=== PATIENT | female | born 1925 | race Caucasian/White ===

== ENCOUNTER 2016-11-06 15:49 | Inpatient (IN) ==
[2016-11-08] MEDS ORDERED: FLEET PHOSPHO - SODA ENEMA 133ml PR PRN (05:00)
[2016-11-08] MEDS ORDERED: NS FLUSH BAG 500ml IV PRN (05:00)
[2016-11-08] MEDS ORDERED: SALINE FLUSH 10ml SYRINGE IVF PRN (05:00)
[2016-11-08] MEDS: LEVOTHYROXINE 50 MCG TABLET PO SCH (07:31)
[2016-11-08] MEDS: HYDROXYCHLOROQUINE 200 MG TABLET PO SCH (08:22)
[2016-11-08] MEDS ORDERED: PANTOPRAZOLE 40 MG INJECTION IV SCH (09:00)
[2016-11-08] MEDS: NS 1,000 ML IV SCH ×2 (09:05→21:38)
--- NOTE | 2016-11-08 13:09 | Anesthesia Preoperative Report ---
Anesthesia Preoperative Record - Date and Time NPO since: mn Allergies/Adverse Reactions: Allergies Allergy/AdvReac Type Severity Reaction Status Date / Time Sulfa (Sulfonamide Allergy Unknown Verified 11/07/16 14:17 Antibiotics) - Vital Signs Vital Signs: Temp Pulse Resp BP Pulse Ox 99.3 F 98 20 139/61 96 11/08/16 12:00 11/08/16 12:00 11/08/16 12:00 11/08/16 12:00 11/08/16 12:00 - Medications Inpatient Medications: Current Medications Hydroxychloroquine Sulfate (Plaquenil) 200 mg PO WB [facility] Last Admin: 11/08/16 08:22 Dose: Not Given Sodium Chloride (Normal Saline) 1,000 mls @ 75 mls/hr IV .[id number] [facility] Last Infusion: 11/08/16 11:52 Dose: 75 mls/hr Levothyroxine Sodium (Synthroid) 50 mcg PO ACB [facility] Last Admin: 11/08/16 07:31 Dose: 50 mcg Pantoprazole Sodium (Protonix Iv) 40 mg IVP DAILY [facility] Sodium Chloride (Iv Flush) 10 - 80 ml IVF PRN PRN PRN Reason: Flushing Sodium Phosphate (Fleet Enema) 1 enema [place] PRN PRN Home Medications: Home Medications Medication Instructions Recorded Confirmed Type Aspirin [Aspirin EC] 81 mg PO 3XW #0 tab 11/06/16 History Clobetasol Propionate/Emoll 1 applic TOP PRN #0 11/06/16 History [Clobetasol Emollient 0.05% Crm] Hydroxychloroquine [Plaquenil] 200 mg PO WB #0 11/06/16 History Levothyroxine Sodium 50 mcg PO ACB #0 tab 11/06/16 History Triamcinolone Acetonide 1 applic TOP PRN #0 11/06/16 History Aspirin *EC* 81 mg PO 3XW 11/07/16 11/07/16 History Clobetasol Propionate/Emoll 1 applic TOP PRN 11/07/16 11/07/16 History Hydroxychloroquine Sulfate 200 mg PO WB 11/07/16 11/07/16 History Levothyroxine Tab 50 mcg PO ACB 11/07/16 11/07/16 History Triamcinolone 1 applic TOP PRN 11/07/16 11/07/16 History - Medical History Cardiovascular: Reports: Hypertension Renal/Endocrine: Reports: Thyroid Disease - Social History Smoking Status: Never smoker Hx Chewing Tobacco Use: No Substance Use Type: does not use Alcohol Intake Frequency: does not drink - Pertinent Findings Laboratory: CBC and BMP 11/08/16 11:54 11/08/16 05:47 BMP 11/07/16 11/08/16 04:27 05:47 Sodium 135 144 Potassium 5.1 H 3.8 Chloride 108 H D 113 H Carbon Dioxide 23 23 BUN 20.0 H 10.0 Creatinine 0.7 0.7 Glucose 111 H 92 Calcium 7.9 L D 8.0 L Cardiac Enzymes 11/06/16 11/07/16 11/07/16 Range/Units 20:04 00:12 04:27 Troponin I < 0.012 < 0.012 < 0.012 (0-0.12) ng/ml Liver Function 11/07/16 11/08/16 Range/Units 04:27 05:47 Total Bilirubin 1.10 0.40 (0.20-1.30) MG/DL AST 17 18 (14-36) U/L ALT 30 36 (9-52) U/L Alkaline Phosphatase 52 D 52 (38-126) U/L Albumin 2.3 L 2.5 L (3.5-5.0) G/DL Urine 11/07/16 Range/Units 21:01 Urine Color Yellow (YELLOW) Urine pH 6.0 (5.0-8.0) Ur Specific [place] 1.010 L (1.015-1.025) Urine Protein Negative (NEGATIVE) Urine Glucose (UA) Negative (NEGATIVE) - Airway Assessment Mallampati Score: II TMD: 3 Fingerbreadths Neck Extension: fair Overall Assessment: no airway concerns - ASA ASA Score: 3 - Plan Anesthesia: General TIVA - Discussion Discussion: Discussed risks/options/alternatives of anesthesia and questions answered. Patient consents. Nursing pain assessment noted. Attestation Statement: Prior to the delivery of any anesthetic medication, I examined the patient, developed the plan, obtained the patient's consent and discussed the risk and benefits of the procedure with the patient/guardian.
--- NOTE | 2016-11-08 13:12 | Progress Note ---
Subjective: patient doing very well today. has still been having maroon stools with bowel prep but nothing unexpected. no headaches, stroke symptoms, focal neurologic deficits, fevers, chills, body aches, focal neurologic deficits, syncope, dizziness, orthostatic symptoms, weakness, fatigue. no ear pain, sinus pain, sore throat. no chest pain, SOA, cough, sputum production, hemoptysis. no heart failure symptoms, edema, ab pain, GERD symptoms, hematemesis, coffee ground emesis, melena, no new or changing diarrhea. no constipation. no issues with monterroso catheter. draining good amounts of clear to frandy colored urine. no dysuria, gross hematuria, flank pain. she doesn't feel systemically unwell and notes "other than my bleeding I feel like my usual self". no events called on telemetry overnight. nursing with no other concerns at this time. no new issues otherwise at this time. Objective Vital signs: Temp Pulse Resp BP Pulse Ox 99.3 F 98 20 139/61 96 11/08/16 12:00 11/08/16 12:11/08/16 12:00 11/08/16 12:11/08/16 12:00 Rhythm: Normal Sinus Rhythm Weight: 51 kg - Constitutional Present: no acute distress, cooperative - Routine HEENT Exam Comments: clinically well hydrated at this time. mucous membranes moist. no clinical evidence of fluid overload at this time. - Routine Respiratory Exam Present: CTA bilaterally. Absent: accessory muscle use, decreased breath sounds , rales, respiratory distress, rhonchi, stridor, wheezes, crackles, distant breath sounds, diminished air movement Comments: no changes from previous. - Routine Cardiovascular Exam Comments: stable from previous. no changes. no LE edema bilaterally at this time. compartments soft and legs symmetrical b/l in LE's at this time. - Routine Abdominal Exam Present: soft, normoactive bowel sounds, non tender. Absent: tenderness, distended, rebound, guarding, rigid, organomegaly Comments: to all 4 quadrants X4. - Routine Exam Comments: no tenderness over bladder area. monterroso in place and looks good. draining copious amounts of clear to frandy colored urine. - Routine Extremities Exam Comments: see the above. - Routine Musculoskeletal Exam Musculoskeletal: moving extremities well - Routine Skin Exam Comments: no new lesions or rashes to uncovered areas. - Routine Neurological Exam Present: alert, oriented X3 stable form previous. no changes from previous baseline. no focal deficits at this time. - Routine Lymphatic Exam Comments: no lymphedema. - Routine Psychiatric Exam Present: normal affect, normal thought process, cooperative, good insight. Absent: auditory hallucinations, visual hallucinations, agitated Results - Labs CBC & Chem 7: 11/08/16 11:54 11/08/16 05:47 Labs: Short CBC 11/06/16 11/07/16 11/07/16 Range/Units 20:04 04:27 07:58 WBC 8.0 (4.5-11.0) T/MM3 Hgb 8.7 L D 10.7 L D 10.9 L (12-16) GM/DL Hct 27.1 L D 31.4 L D 32.0 L (36-46) % Plt Count 179 D (130-400) T/MM3 11/07/16 11/07/16 11/07/16 Range/Units 12:10 17:42 19:18 WBC (4.5-11.0) T/MM3 Hgb 10.1 L 10.8 L 10.3 L (12-16) GM/DL Hct 30.0 L 32.7 L 31.0 L (36-46) % Plt Count (130-400) T/MM3 11/08/16 11/08/16 11/08/16 Range/Units 00:10 05:47 07:56 WBC 6.5 (4.5-11.0) T/MM3 Hgb 9.6 L 9.2 L 10.0 L (12-16) GM/DL Hct 28.4 L 26.5 L 29.7 L D (36-46) % Plt Count 189 (130-400) T/MM3 11/08/16 Range/Units 11:54 WBC (4.5-11.0) T/MM3 Hgb 9.4 L (12-16) GM/DL Hct 27.3 L (36-46) % Plt Count (130-400) T/MM3 BMP 11/07/16 11/08/16 04:27 05:47 Sodium 135 144 Potassium 5.1 H 3.8 Chloride 108 H D 113 H Carbon Dioxide 23 23 BUN 20.0 H 10.0 Creatinine 0.7 0.7 Glucose 111 H 92 Calcium 7.9 L D 8.0 L Cardiac Enzymes 11/06/16 11/07/16 11/07/16 Range/Units 20:04 00:12 04:27 Troponin I < 0.012 < 0.012 < 0.012 (0-0.12) ng/ml Liver Function 11/07/16 11/08/16 Range/Units 04:27 05:47 Total Bilirubin 1.10 0.40 (0.20-1.30) MG/DL AST 17 18 (14-36) U/L ALT 30 36 (9-52) U/L Alkaline Phosphatase 52 D 52 (38-126) U/L Albumin 2.3 L 2.5 L (3.5-5.0) G/DL Urine 11/07/16 Range/Units 21:01 Urine Color Yellow (YELLOW) Urine pH 6.0 (5.0-8.0) Ur Specific [place] 1.010 L (1.015-1.025) Urine Protein Negative (NEGATIVE) Urine Glucose (UA) Negative (NEGATIVE) Assessment and Plan Assessment and Plan: acute lower gastrointestinal bleeding, blood loss anemia acute hypotension, syncope secondary to combination of GI bleed and vasovagal syncope hypothyroid -continue inpatient and ICU, routine vitals with call parameters, monterroso catheter, I's and O's, daily weights, up with assist, NPO for now. likely discontinue urinary catheter and perform voiding trial after colonoscopy today. possibly out of ICU later today. -cbc's this AM with hgb gradually trending down to mid-9's and H & H's support this as well. cmp essentially normal today. UA with some bacteria and blood but given monterroso catheter this is not unexpected. no urinary symptoms and no indication for abx. will d/c catheter after procedure today. see previous notes and records for other testing and results from this stay. -H & H later this evening and cbc, cmp in the AM. -continue normal saline at 75ml/hr. continue protonix at 40mg IV daily ( was decreased from BID yesterday). continue home synthroid. patient tolerated bowel prep well. -Dr. Cross, surgery consulted and will do colonoscopy today. -further management pending the above. lupus -continue home plaquanil unless surgery wishes to hold for procedure. all other chronic medical conditions stable and no other changes to plan of care at this time. ppx -continue current SCD's. pharmacologic DVT prophylaxis contraindicated secondary to acute GI bleed. -continue ppi above for GI ppx. -DNR/DNI -dispo colonoscopy today and hopefully home tomorrow. Sepsis Assessment - Evaluation Sepsis screening result: No Definite Risk - Focused Exam Vital Signs Temp Pulse Resp BP Pulse Ox 11/08/16 12:00 99.3 F 98 20 139/61 96 11/08/16 08:05 98.7 F 102 H 24 98 11/08/16 08:01 111/58 11/08/16 08:00 102 H 24 98 11/08/16 07:45 108 H 20 11/08/16 07:30 99 26 H 95 11/08/16 07:15 97 16 95 11/08/16 07:01 115/54 11/08/16 06:00 100 16 129/54 11/08/16 05:06 109 H 50 H 145/63 H 97 11/08/16 04:04 92 15 114/54 96 11/08/16 03:02 94 22 102/49 97 11/08/16 02:00 89 41 H 106/53 97 11/08/16 01:29 90 60 H 101/45 95 Hospital Course Summary Disclaimer: The visit summary below is not to be considered part of the above Progress Note.
[2016-11-08] MEDS ORDERED: PROPOFOL 500 MG/50 ML VIAL IV ONE (13:19)
--- NOTE | 2016-11-08 14:40 | General Surgery Procedure Note ---
Date of Procedure: 11/08/16 Surgeon: Tay Anesthesia: General TIVA Postoperative Diagnosis: cecal mass Procedure: Operation Date: 11/08/16 14:20 Actual Procedures Colonoscopy with possible biopsies and/or polypectomy(Not Applicable) - Cristian Cross MD Estimated Blood Loss: See Anesthesia Record.
--- NOTE | 2016-11-08 16:28 | Anesthesia Postoperative Note ---
- Date and Time Date: 11/08/16 Time: 16:20 - Status Patient Participated in Evaluation: Patient Participated in Person Vital Signs: Temp Pulse Resp BP Pulse Ox 99 F 91 15 141/62 H 97 11/08/16 15:00 11/08/16 14:55 11/08/16 14:55 11/08/16 14:55 11/08/16 14:55 Respiratory Function: Airway Patent, Regular Respirations Cardiovascular Function: Regular Pulse Mental Status: Alert and Oriented Hydration: Taking PO Fluids Complications During Recover: None Apparent - Follow-Up Instructions Instructions: Per Surgeon
[2016-11-08] MEDS ORDERED: NS 100 ML ONE (18:43)
[2016-11-08] MEDS ORDERED: IOHEXOL 300mg/ml 75ml INJECTION ONE (18:43)
[2016-11-08] MEDS ORDERED: SALINE FLUSH 10ml SYRINGE ONE (18:43)
[2016-11-09] MEDS: NS 1,000 ML IV SCH (01:50)
[2016-11-09] MEDS: LEVOTHYROXINE 50 MCG TABLET PO SCH (06:01)
--- NOTE | 2016-11-09 07:21 | Progress Note ---
DATE 11/08/2016 FINDINGS Yesenia, this evening, was in good spirits. She denied any abdominal pain. VITALS: Temperature 98.5, pulse 94, respirations 20, blood pressure 130/61. CHEST: Clear to auscultation bilaterally. HEART: Regular rate and rhythm. Normal S1 and S2 without gallops, murmurs or clicks. ABDOMEN: Palpation of the abdomen revealed it to be soft and nontender. LABORATORY/ENDOSCOPIC RESULTS The patient's last hemoglobin was stable at 9.4 earlier today. Endoscopically, unfortunately, the patient was found have a suspicious mass involving the ileocecal valve region. This area was biopsied. I did share her endoscopic results with her this evening. PLAN Will go ahead and advance diet as tolerated. Will plan on transferring to floor tomorrow. Will DC serial hemoglobins. Repeat CBC in a.m. Will proceed with CT scan of abdomen and pelvis with oral and IV contrast for further evaluation of the suspicious mass involving the ileocecal valve region. If the patient is stable tomorrow without evidence for re-bleeding and hemoglobin remains stable, she may be discharged to home and further evaluation will be undertaken on an outpatient basis in regards to this suspicious mass that was biopsied today upon colonoscopy. The above-proposed plan was discussed with the patient. The patient understood and agreed. GIOVANNY
[2016-11-09] MEDS: HYDROXYCHLOROQUINE 200 MG TABLET PO SCH (08:42)
[2016-11-09] MEDS ORDERED: PANTOPRAZOLE 40 MG INJECTION IVP SCH (09:00)
--- NOTE | 2016-11-09 09:10 | Operative Note ---
DATE OF SERVICE 11/08/2016 SURGEON Cristian Cross MD PREOPERATIVE DIAGNOSIS History for hematochezia. POSTOPERATIVE DIAGNOSIS Ileocecal mass, sigmoid diverticulosis. PROCEDURE Colonoscopy with biopsies of ileocecal mass via with via cold biopsy technique. ANESTHESIA TIVA BRIEF HISTORY/INDICATIONS Mrs. Bernal is an 89-year-old female who presented to [facility] as a result of her history for significant rectal bleeding. The patient did undergo initially an EGD that did not reveal any underlying etiology for her rectal bleeding. It was subsequently recommended to the patient she undergo a colonoscopy for further evaluation. For completeness please refer notes included within the patient's electronic medical record. FINDINGS Upon colonoscopy the patient was found have numerous diverticula within the sigmoid colon region. There was some old blood present near these diverticula suggestive of a recent diverticular bleed. There was no evidence for angiodysplastic lesions or polyps. The patient, unfortunately, was found to have a mass-like lesion involving the ileocecal valve. This did appear suspicious for an underlying neoplastic process. Photos were obtained for documentation purposes. The ileocecal valve did protrude outwardly into the cecum to a fairly good extent. Just behind the ileocecal valve and extending into what appeared to be the terminal ileum, the patient was found to have a suspicious appearing lesion. There was a white exudate-like material overlying this lesion. Multiple biopsies were obtained from this area via cold biopsy technique. DESCRIPTION OF PROCEDURE After informed consent was obtained, the patient was brought to the endoscopy suite and placed on the table in left lateral decubitus position. The patient subsequently underwent total intravenous anesthesia by the nurse jawbone puller per my request. Formal time-out was then completed. Next, a digital rectal examination was performed. Normal sphincter tone. No rectal mass was appreciated. An Olympus colonoscope was inserted in the anus and advanced with the lumen of the colon under direct visualization at all times till the cecum was ascertained. As stated above, the ileocecal valve was protruding outwardly into the cecal lumen. Photos were again taken for documentation purposes. Scope was then advanced past this ileocecal valve and one could see a suspicious -appearing mass that extended in towards the terminal ileum. There was a white exudate-like material overlying the mass. The mass did appear to be narrowing the lumen of the terminal ileum. Multiple biopsies were obtained from the suspicious mass involving the ileocecal valve region. This was done via cold biopsy technique. Scope was then slowly withdrawn, again maintaining visualization of the lumen at all times. I did not appreciate any evidence for angiodysplastic lesions nor polyps. The patient was found to have a fair amount of diverticula within the sigmoid colon region. There was some old blood overlying a few of these diverticula indicative of recent bleeding. No active bleeding was noted. The scope was then continued to be withdrawn till it was brought forth back to rectal vault. A J-maneuver was performed. No worrisome perianal pathology was noted. The scope was allowed to straighten and withdrawn through the anal verge. The patient tolerated the procedure without difficulty and was sent back to the preop area in stable condition. Will await the biopsy results from today's colonoscopy and proceed accordingly with further recommendations thereafter. GIOVANNY
--- NOTE | 2016-11-09 09:28 | CT Scan Report ---
Indication: cecal mass found on endoscopy PROCEDURE: CT abdomen pelvis w con: Encounter: Initial Comparison: None Technique: Axial CT images were performed through the abdomen and pelvis after the administration of intravenous contrast. Coronal and sagittal two-dimensional reformats. Automated Exposure Control and Iterative Reconstruction dose reducing techniques were utilized. Contrast: Omnipaque 300 67 mL Findings: There are couple calcified granulomas in the lower lobes. There is also a noncalcified 1.1 cm nodule in the right middle lobe. There are some areas of bronchiectasis and subpleural scarring in both lower lobes. Pectus excavatum deformity. The liver shows two rounded low-attenuation lesions in the right lobe on axial image #25 measuring 1.7 cm in diameter each. These do not show fluid attenuation. Additionally there is an irregular nodule along the surface of the lateral left lobe on this image measuring 2.1 cm in diameter. Smaller lesion more medially in the left lobe on image #24 measuring 0.9 cm in size with similar attenuation. Moderate intrahepatic bile duct dilatation, probably related to age and prior cholecystectomy. Extrahepatic common duct is dilated up to 1.4 cm without obvious obstructing stone or mass. The spleen, pancreas and left adrenal gland are within normal limits. Possible adenomatous hyperplasia of the right adrenal gland. The kidneys are normal. No abdominal or pelvic lymphadenopathy. Bladder is decompressed with a fully catheter. The uterus is unremarkable. No free fluid. There is significant abnormal bowel wall thickening seen centered around the ileocecal valve and terminal ileum. The terminal ileum wall is thickened up to 1.5 cm in diameter with some luminal narrowing but no obstruction. There is abnormal soft tissue or mass surrounding the ileocecal valve measuring up to 2.7 cm in diameter on coronal image #17. There is some soft tissue or fluid along the right lateral conal fascia seen on axial image #45 measuring 2.9 x 1.3 cm in size. Bone windows show degenerative change in the spine. Impression: 1. 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 2. Multiple liver lesions highly concerning for metastases. 3. Right middle lobe nodule could represent metastasis or granuloma. There are other calcified granulomas present within the lung bases. Case was discussed with Dr. Cross at 0915 on November 09, 2016. .
--- NOTE | 2016-11-09 11:33 | Progress Note ---
DATE 11/09/2016 FINDINGS Yesenia was in good spirits this morning. She had eaten a regular breakfast. She has had no further rectal bleeding. VITALS: Temperature 98.7, pulse 104, respirations 24, blood pressure 125/55, SaO2 93% on room air. HEENT: Normocephalic. Pupils are equal, round and reactive to light and accommodation. CHEST: Clear to auscultation bilaterally. HEART: Regular rate and rhythm. Normal S1 and S2 without gallops, murmurs or clicks. ABDOMEN: Palpation of the abdomen reveals it to be soft and nontender. I do not appreciate any evidence for hepatosplenomegaly or abnormal masses. LABORATORY/RADIOGRAPH EVALUATION I did review her CT scan and, unfortunately, the patient does have three separate lesions within the liver that are suspicious for metastatic disease. One can see some thickening involving the terminal ileum and cecal region. There does not appear to be any obstruction at this time. A dictated report is still pending at time of dictation but I have spoken with the radiologist in regard to the above CT scan findings. From a laboratory standpoint, her hemoglobin remains stable at 9.8. 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 PLAN I did inform Yesenia of her endoscopic findings as well as her CT scan findings. Discussed with Yesenia her options of proceeding with further evaluation including a CT-guided percutaneous biopsy of the liver lesions and possible palliative chemotherapy versus comfort care/hospice care. The patient was fairly quick to state that she did not want any further intervention undertaken. She had requested that I contact her son, Obed Goodman. I did speak with the patient's son in regard to the above findings. At this time will go ahead and transfer the patient out to the floor. I do believe the patient could be discharged to home later this afternoon. I have spoken with the patient's PCP in regard to the above matters as well. GIOVANNY
--- NOTE | 2016-11-09 13:49 | Progress Note ---
Subjective: patient doing well medically. she is concerned and was caught off-guard about the noted mass in her colon and areas on her liver of possible metastesis. otherwise has no complaints. no headaches, stroke symptoms, URI symptoms, syncope, dizziness. appetite is good. no fevers, chills, body aches. no altered mentation or delerium symptoms. no chest pain, SOA, orthopnea, PND, heart failure symptoms, cough, sputum production. has been urinating ok since monterroso taken out. no hemoptysis. no orthostatic symptoms. no focus of infection of which she can waste picker on. no photophobia or meningeal symptoms. no abdominal pain, nausea, vomiting, diarrhea, constipation. no bloody/black stools. no GI bleeding since our last visit together. no hematemesis, GERD symptoms, coffee ground emesis, dysuria, hematuria, urinray frequency, flank pain, nocturia, skin/soft tissue issues. denies homicidal/suicidal ideations. no events called on telemetry overnight. no new issues otherwise at this time. Objective Vital signs: Temp Pulse Resp BP Pulse Ox 99.0 F 103 H 16 142/60 H 96 11/09/16 10:48 11/09/16 10:48 11/09/16 10:48 11/09/16 10:48 11/09/16 10:48 Rhythm: Normal Sinus Rhythm Weight: 50.3 kg - Constitutional Present: no acute distress, well nourished, well developed, cooperative. Absent : agitated, somnolent, obtunded - Routine HEENT Exam Head: Present: normocephalic, atraumatic Comments: clinically well perfused and mucous membranes moist at this time. no clinical evidence of fluid overload at this time. - Routine Respiratory Exam Present: CTA bilaterally. Absent: accessory muscle use, decreased breath sounds , rales, respiratory distress, rhonchi, stridor, wheezes, crackles, distant breath sounds, diminished air movement Comments: no retractions or accessory muscle use. moving air well. lung sounds heard in all lung adrian b/l at this time. - Routine Cardiovascular Exam Comments: stable from previous. no changes. - Routine Abdominal Exam Present: soft (X4.), normoactive bowel sounds (X4.), non distended, non tender. Absent: tenderness (X4.), distended, rebound, guarding, firm, rigid, organomegaly, mass, bruit Comments: no evidence of acute abdomen at this time. - Routine Exam Comments: no tenderness over bladder area. - Routine Extremities Exam Absent: clubbing, edema, joint swelling, pallor Comments: clinically well perfused in all 4 extremities at this time. legs symmetrical and compartments soft b/l in LE's at this time. - Routine Musculoskeletal Exam Musculoskeletal: no clubbing or cyanosis, normal strength, no joint swelling, moving extremities well - Routine Skin Exam Present: intact Comments: no new rashes or skin changes to uncovered areas. - Routine Neurological Exam no focal deficits grossly. no changes from yesterday's baseline. - Routine Lymphatic Exam Comments: no lymphedema. - Routine Psychiatric Exam Present: normal affect (but becomes tearful when talking about her diagnosis. ) Comments: no clinical evidence of delerium, jef, psychosis, altered mentation or alertness. Results - Labs CBC & Chem 7: 11/09/16 05:08 11/09/16 05:08 Labs: Short CBC 11/08/16 11/09/16 Range/Units 21:40 05:08 WBC 12.0 H D (4.5-11.0) T/MM3 Hgb 9.2 L 9.8 L (12-16) GM/DL Hct 27.7 L 29.7 L (36-46) % Plt Count 217 (130-400) T/MM3 BMP 11/09/16 05:08 Sodium 140 Potassium 3.8 Chloride 108 H Carbon Dioxide 25 BUN 6.0 L Creatinine 0.8 Glucose 102 Calcium 8.5 Liver Function 11/09/16 Range/Units 05:08 Total Bilirubin 0.50 (0.20-1.30) MG/DL AST 23 (14-36) U/L ALT 33 (9-52) U/L Alkaline Phosphatase 68 D (38-126) U/L Albumin 3.0 L (3.5-5.0) G/DL Assessment and Plan Assessment and Plan: acute lower gastrointestinal bleeding, blood loss anemia from acute diverticular bleeding, resolved. new onset leukocytosis of uncertain etiology colon mass of uncertain etology at the iliocecal junction with areas in liver concerning for metastatic process acute hypotension, syncope secondary to combination of GI bleed and vasovagal syncope, resolved. hypothyroid -continue inpatient care. patient out of ICU. monterroso catheter removed and patient urinating ok and post-void residual reportedly ok at bedside. continue routine vitals with call parameters, I's and O's, daily weights, up with assist, current PO diet. will ambulate TID with assist. -CBC today with new leukocytosis, hgb's in the mid-9's and stable and otherwise unremarkable. no focal of infection or obvious cause in history or on physical exam to explain this. cmp essentially normal. colonoscopy showing likely diverticular bleed as cause but incidentally notes colon mass as noted above. subsequent CT ab/pelvis notable for the liver lesions concerning for metasteses and otherwise unremarkable. patient consulted at length about options and she wishes to think about it and bring up the topic again as outpatient. H and H's have been stable in mid-9's for a while now. no need to check further series H & H's for now unless clinical evidence of bleeding starts again. -pathology and biopsy reports from endoscopy pending. urine culture, UA, CXR from today pending to work up the leukocytosis. -cbc, cmp in the AM. -will likely discontinue IV fluids later today but continue NS at 75ml/hr for now. d/c IV protonix as there's no indication of an upper GI cause. continue home synthroid. -Dr. Cross, surgery consulted and will do colonoscopy today. -further management pending the above. lupus -continue home plaquanil. all other chronic medical conditions stable and no other changes to plan of care at this time. ppx -continue current SCD's. pharmacologic DVT prophylaxis contraindicated secondary to acute GI bleed. -continue PO above for GI ppx. -DNR/DNI -dispo given spike of wbc count today will keep inpatient for one more day and follow on above. hopefully discharge to home tomorrow. Sepsis Assessment - Evaluation Sepsis screening result: No Definite Risk - Focused Exam Vital Signs Temp Pulse Resp BP Pulse Ox 11/09/16 10:48 99.0 F 103 H 16 142/60 H 96 11/09/16 08:00 98.7 F 104 H 24 125/55 93 11/09/16 04:00 99.0 F 96 20 161/68 H 97 Respiratory exam: Present: CTA bilaterally. Absent: accessory muscle use, decreased breath sounds, rales, respiratory distress, rhonchi, stridor, wheezes , crackles, distant breath sounds, diminished air movement Capillary refill: < 2-3 Seconds Hospital Course Summary Disclaimer: The visit summary below is not to be considered part of the above Progress Note.
--- NOTE | 2016-11-09 14:37 | XRay Report ---
INDICATION: leukocytosis. PROCEDURE: CHEST 2-VIEWS UPRIGHT (PA & LAT) Encounter: Initial COMPARISON: Chest x-ray dated May 26, 2014 CT abdomen dated November 08, 2016 FINDINGS: Scattered calcified granulomas. Noncalcified right middle lobe nodule seen by CT is not visible radiographically. There is no pleural effusion or pneumothorax. Scattered calcified granulomas. The heart size, mediastinal contours and pulmonary vascularity are stable. IMPRESSION: Stable chest without acute cardiopulmonary disease. .
[2016-11-10] MEDS: LEVOTHYROXINE 50 MCG TABLET PO SCH (06:31)
[2016-11-10] MEDS: HYDROXYCHLOROQUINE 200 MG TABLET PO SCH (08:19)
--- NOTE | 2016-11-10 10:04 | Progress Note ---
Subjective: patient continues to feel well. no bleeding overnight. no headaches, stroke symptoms, syncope, dizziness, falls, trauma, URI symptoms. appetite has been good. no fevers, chills, body aches, fatigue. she's been up and walking around and feels stable. no chest pain, photophobia, meningeal symptoms. no chest pain, SOA, orthopnea, PND, edema. no hemoptysis, cough, sputum production. no ab pain, nausea, vomiting, hematemesis, coffee ground emesis, melena, BRBPR, diarrhea. no BM since bowel prep but this is expected. no events overnight. no dysuria, hematuria, urinray frequency, flank pain, nocturia. no other urinary symptoms. eating and drinking well. appetite good. no new issues otherwise at this time. Objective Vital signs: Temp Pulse Resp BP Pulse Ox 96.4 F L 92 18 139/66 97 11/10/16 08:15 11/10/16 08:15 11/10/16 08:15 11/10/16 08:15 11/10/16 08:15 Weight: 50.3 kg - Constitutional Present: no acute distress, well nourished, well developed, cooperative. Absent : agitated, somnolent, obtunded - Routine HEENT Exam Comments: clinically well perfused in all 4 extremities at this time. mucous membranes moist. no clinical evidence of fluid overload at this time. - Routine Respiratory Exam Present: CTA bilaterally. Absent: accessory muscle use, decreased breath sounds , rales, respiratory distress, rhonchi, stridor, wheezes, crackles, distant breath sounds, diminished air movement Comments: lung sounds heard in all lung adrian b/l at this time. - Routine Cardiovascular Exam Present: RRR, no murmur. Absent: gallop, rubs, click, bradycardia, tachycardia , JVD Comments: no changes from previous baseline. - Routine Abdominal Exam Present: soft (X4.), normoactive bowel sounds (X4.), non distended. Absent: tenderness (X4.), distended, rebound, guarding, firm, rigid, organomegaly - Routine Exam Comments: no tenderness over bladder area. monterroso is gone. - Routine Extremities Exam Comments: no LE edema bilaterally. - Routine Musculoskeletal Exam Musculoskeletal: normal strength, no joint swelling, moving extremities well - Routine Skin Exam Comments: no rashes or changes to uncovered areas. - Routine Neurological Exam no focal deficits grossly. - Routine Lymphatic Exam Lymphatic: Absent: lymphedema - Routine Psychiatric Exam Present: normal affect, normal thought process, cooperative Comments: no changes from previous. Results - Labs CBC & Chem 7: 11/10/16 04:15 11/10/16 04:15 Labs: Short CBC 11/10/16 Range/Units 04:15 WBC 7.0 D (4.5-11.0) T/MM3 Hgb 8.9 L (12-16) GM/DL Hct 27.2 L (36-46) % Plt Count 229 (130-400) T/MM3 BMP 11/10/16 04:15 Sodium 141 Potassium 3.7 Chloride 108 H Carbon Dioxide 26 BUN 12.0 D Creatinine 0.8 Glucose 94 Calcium 8.7 Liver Function 11/10/16 Range/Units 04:15 Total Bilirubin 0.40 (0.20-1.30) MG/DL AST 21 (14-36) U/L ALT 34 (9-52) U/L Alkaline Phosphatase 61 (38-126) U/L Albumin 2.8 L (3.5-5.0) G/DL Urine 11/09/16 Range/Units 15:11 Urine Color Yellow (YELLOW) Urine Clarity Cloudy Urine pH 5.5 (5.0-8.0) Ur Specific [place] 1.020 (1.015-1.025) Urine Protein 2+ A (NEGATIVE) Urine Glucose (UA) Negative (NEGATIVE) Assessment and Plan Assessment and Plan: acute lower gastrointestinal bleeding, blood loss anemia from acute diverticular bleeding, resolved. acute cystitis new onset leukocytosis of uncertain etiology secondary to the above, resolved. colon mass of uncertain etology at the iliocecal junction with areas in liver concerning colon adenocarcinoma and for metastatic process acute hypotension, syncope secondary to combination of GI bleed and vasovagal syncope, resolved. hypothyroid -if hemoglobin and hct are stable later today will discharge. -cbc's today with hgb of 8.9 and hct down accordingly. otherwise cbc unremarkable. hgb down some from yesterday. no overt signs of bleeding but will follow later today before sending home. cmp normal. CEA from a few days ago unremarkable. UA with evidence of bacteruria and infection. patient's urinary symptoms minimal but given recent monterroso catheter, worsening bacteruria, elevated WBC count yesterday and resolution of the wbc count with abx will treat with abx as below. cxr yesterday unremarkable. see previous notes for other testing and results from this stay. -pathology and biopsy reports from endoscopy pending. urine cx pending. -IV fluids discontinued as is IV ppi. continue home synthroid. -will likely discontinue IV fluids later today but continue NS at 75ml/hr for now. d/c IV protonix as there's no indication of an upper GI cause. continue home synthroid. continue keflex. -Dr. Cross, surgery consulted and following. -further management pending the above. lupus -continue home plaquanil. all other chronic medical conditions stable and no other changes to plan of care at this time. ppx -patient refusing SCD's. pharmacologic DVT prophylaxis contraindicated secondary to recent GI bleed. -continue PO diet above for GI ppx. -DNR/DNI -dispo wbc count normal now. follow hgb later today and is stable will discharge to home. Sepsis Assessment - Evaluation Sepsis screening result: No Definite Risk - Focused Exam Vital Signs Temp Pulse Resp BP Pulse Ox 11/10/16 08:15 96.4 F L 92 18 139/66 97 11/10/16 04:00 96.5 F L 101 H 18 135/65 96 11/10/16 00:00 97.4 F 94 20 146/67 H 94 Respiratory exam: Present: CTA bilaterally. Absent: accessory muscle use, decreased breath sounds, rales, respiratory distress, rhonchi, stridor, wheezes , crackles, distant breath sounds, diminished air movement Capillary refill: < 2-3 Seconds Hospital Course Summary Disclaimer: The visit summary below is not to be considered part of the above Progress Note.
--- NOTE | 2016-11-10 12:22 | Discharge Summary ---
Discharge Plan - Med Rec/Dispo Referrals/Follow Up: Thai Beasley DO [Physician] - 1 Week (do cbc and cmp the day before follow up at [facility] in [address] to [address] Beasley. ICD 10 code for this is D64.9 and E86.0.) Cristian Cross MD [Physician] - 2 Weeks Prescriptions: New Levothyroxine Sodium [Synthroid] 50 mcg PO ACB CephALEXin [Keflex] 500 mg PO Q12HR #18 cap Hydroxychloroquine Sulfate 200 mg PO WB Continue Levothyroxine Sodium 50 mcg PO ACB #0 tab Hydroxychloroquine [Plaquenil] 200 mg PO WB #0 Changed Clobetasol Propionate/Emoll 1 applic TOP BID PRN #0 PRN Reason: Rash Triamcinolone 1 applic TOP BID PRN #0 PRN Reason: Rash Discontinued Aspirin *EC* 81 mg PO 3XW Levothyroxine Tab 50 mcg PO ACB Aspirin [Aspirin EC] 81 mg PO 3XW #0 tab Hydroxychloroquine Sulfate 200 mg PO WB Triamcinolone Acetonide 1 applic TOP PRN #0 Clobetasol Propionate/Emoll [Clobetasol Emollient 0.05% Crm] 1 applic TOP PRN #0 - Disposition 01 Discharged Home, Self-Care
--- NOTE | 2016-11-11 19:07 | Discharge Summary ---
DATE OF ADMISSION 11/07/2016 DATE OF DISCHARGE 11/10/2016 MODE OF ADMISSION Inpatient. ATTENDING PHYSICIAN Dr. Beasley, of [facility] ADMITTING PHYSICIAN Dr. Beasley, [facility] CONSULTING PHYSICIAN Dr. Cross - General Surgery. DISCHARGE DIAGNOSES 1. Acute lower gastrointestinal bleeding and blood loss anemia from acute diverticular bleed which has resolved. 2. Colon mass of uncertain etiology at the ileocecal junction with areas in the liver concerning for metastatic process related to colon adenocarcinoma. 3. Acute cystitis and new-onset leukocytosis. 4. Acute hypotension, syncope secondary to a combination of gastrointestinal bleed and vasovagal syncope which has resolved. 5. Hypothyroid. 6. Lupus, not active. DISCHARGE MEDICATIONS 1. Synthroid 50 mcg p.o. daily. 2. Keflex 500 mg p.o. q.12h. x 9 days, #18, no refills. 3. Plaquenil 200 mg p.o. daily with breakfast. 4. Clobetasol 0.05% cream, one application topically b.i.d. as needed for rash. The patient has been on this for quite a while. Instructions given to not put on his face, groin, armpits. Patient instructed to not use more than 14 days at a time. Patient instructed not to use within 24 hours of the triamcinolone cream. 5. Triamcinolone 0.1% cream, one application topically b.i.d. as needed for rash. The patient has also been using this for quite a while for the lupus. The patient instructed not to use within 24 hours of the clobetasol. Patient instructed not to use for more than 14 days at a time. The patient instructed not to put on face, axilla, groin. HELD MEDICATIONS Patient's aspirin 81 mg p.o. daily. DISCHARGE CONDITION The patient is discharged to home in stable and good condition. FOLLOWUP 1. Patient will follow up with Dr. Beasley at [facility] in one week with a CBC and CMP the day before and sent to him at the [facility]. 2. The patient will follow up with Dr. Cross of General Surgery in two weeks. DISCHARGE DIET Regular. FURTHER INSTRUCTIONS Nursing is given instructions to discontinue all lines, IVs and telemetry before discharge that the patient did not come in on. ACTIVITIES As tolerated. [place], DURABLE MEDICAL EQUIPMENT Not applicable. WOUND CARE: Not applicable. EXPECTED SIGNS/SYMPTOMS The patient's rectal bleeding, dizziness and fatigue should stay resolved. PAIN MANAGEMENT/TREATMENT If the patient has any pain she will let us know immediately. Return to care immediately if any bloody stools, black stools, abdominal pain, dizziness, passing out, weakness, fatigue should occur. Numbers given for contact of Dr. Beasley during and after business hours. PERTINENT LABORATORY DONE DURING THE STAY The patient's hemoglobin trended down to 8.7 with her bleeding. She was transfused 2 units of blood. Hemoglobin was 9.3 on discharge and generally stable at that point. Hematocrit was generally in the high 20s while here. CBC was otherwise unremarkable. PTT and INR on admission were normal. Sodiums, potassiums, chlorides, bicarbonates, anion gaps were all unremarkable while here. The patient's blood urea nitrogen was 24 on admission which was likely from the GI bleed and dehydration. By discharge it was 12 and normal. Kidney function was normal while here. Blood sugars were generally unremarkable while here. Calcium, phosphorus, magnesium were all normal while here. Liver functions tests were normal while here. Troponins x 3 were normal on the day of admission. Patient's albumin did get as low as 2.3 but was trending up to 2.8 by discharge. TSH here was normal. Lipase on admission was 133 and normal. Carcinoembryonic antigen was 1.07 on 11/08/2016. Urinalyses while here did show evidence of a great deal of white blood cells and bacteria as well as blood and protein. This was likely a combination of a Barron catheter that was required and the urinary tract infection. MICROBIOLOGY WHILE HERE The patient did grow out E. coli which was awaiting speciation and sensitivities at this time. However, this has come back. It was pansensitive which includes to first-generation cephalosporins. The patient was put on Keflex so this should be covered. Patient's blood type is O+ and antibody screen was negative. The patient was given 2 units of packed red blood cells while here which were irradiated and leukoreduced. . PERTINENT IMAGING WHILE HERE The patient had a CT of the abdomen and pelvis with contrast done on 11/08/2016 which showed what appeared to be a colon carcinoma centered at the ileocecal valve with possible tumor extension into the terminal ileum and adjacent nodularity along the right lateral conal fascia which was suspicious for local metastasis. There were multiple liver lesions which were highly concerning for metastasis. There was a right middle lobe nodule which could either have represented metastasis or a granuloma. Otherwise it was unremarkable. Chest x-rays during the stay were unremarkable. CT head noncontrast on admission was normal. PERTINENT PROCEDURES DONE WHILE HERE 1. The patient had a colonoscopy on 11/08/2016 which noted numerous diverticula within the sigmoid colon. There was some old blood present near these which was suggestive of a recent bleed. The patient was found to have a mass-like lesion involving the ileocecal valve. Multiple biopsies were taken. The biopsies from the colon are still pending. 2. The patient did have an EGD done on 11/07/[address] Cross. This noted that the esophagus, stomach and duodenum were essentially within normal limits. The patient did have several benign-appearing gastric polyps which were on the order of 4-5 mm in diameter. All biopsies from the endoscopies are indeed pending. HISTORY OF PRESENT ILLNESS/HOSPITAL COURSE This is a pleasant 89-year-old female known to our clinic. She was in her usual state of health until the day of admission at which time she started having numerous bouts of bright-red bloody stools per rectum. She was seen in clinic and then immediately sent to the emergency room where her hemoglobin was noted to be 11.5. Other imaging and laboratory evaluation was undertaken and is as noted above. The patient's hemoglobin did trend down to 8.7. The patient got to the point where she actually had a full syncopal episode. These symptoms resolved with IV fluids and blood. She was admitted to the ICU and vigorously rehydrated. The syncope was worked up with troponins x [address] which were normal. EKG and CT of the head were normal. The patient's neurological exam was normal and this was considered most certainly due to the dehydration, blood loss and a vasovagal component as well. Once she was rehydrated and blood given she had no further issues with this at all. The patient was initially put on IV Protonix b.i.d. but this was weaned off as it became clear that this was lower gastrointestinal in cause. Dr. Cross was consulted and performed endoscopies as listed above. Please see above for the results of that. Biopsies are currently pending. The mass found certainly is suspicious for a colon adenocarcinoma with metastases to the liver and possibly lung. We did inform the patient and the patient's son per her request of these findings. She is stating right now that she is opting towards not doing anything about this and simply pursuing comfort cares. She was consulted that this would likely take her life in the event that no further aggressive therapy was undertaken and she verbalized understanding of that. The patient is certainly able to make her own decisions in this regard and her cognition is very good. She did say she will think about it and speak with her family regarding this and get back to us as an outpatient and will revisit the topic then. By discharge the patient's hemoglobin was stable and she was feeling back to baseline. She had had no episodes of bleeding for at least 24 hours. In fact, other than some expected maroon stools with her bowel prep, she had had no bleeding since the second day of admission. Vitals had otherwise been stable throughout. On the day before discharge the patient developed a white blood cell count and it was noted that she was having some low-grade fevers as well. Chest x-ray was unremarkable and urinalysis certainly did show evidence of a developing infection and thus she was treated. Please see above for culture and sensitivities of this. She is going home on the Keflex for this. The patient was not dizzy or lightheaded upon standing at all on discharge and was deemed safe to go back and function in her previous environment. In regard to the patient's hypothyroidism, this was stable and she was maintained on her current Synthroid. In regard to the patient's lupus, she was maintained on her home Plaquenil and topical steroids. This was stable while here. All other chronic medical conditions stable and no other changes to plan of care at this time. For DVT prophylaxis the patient was on SCDs while here. Given the patient's recent GI bleed, pharmacological DVT prophylaxis was contraindicated. The last day of admission she did start refusing the SCDs. For GI prophylaxis the patient was continued on the oral diet above as well as put on the proton pump inhibitor for much of her stay. The proton pump inhibitor was discontinued later as it became clear that the source of her bleed was lower gastrointestinal. The patient was a DO NOT RESUSCITATE/DO NOT INTUBATE while here. DISPOSITION Home in stable and good condition. [facility]
== END 2016-11-10 15:13 | disposition home or self-care (01) | DRG 378 ==
LOC: CCU 17:19 → MED 11-09 09:58
PROVIDERS: ADMIT Internal Medicine; ATTEND Internal Medicine